=== PATIENT | male | born 1965 | race Caucasian/White ===

== ENCOUNTER 2020-11-11 10:57 | Emergency (ER) | payer BC, OTHER ==
[~2020-11-11 10:57] MED LIST: PREDNISONE 50 M50 MG PO
[2020-11-11 13:16] LABS: HEMOGLOBIN 17.3 gm/dl (14.0-17.5); RED BLOOD COUNT 5.6 M/UL (4.20-5.50); WHITE BLOOD COUNT 10.9 K/UL (4.5-11.0)
[2020-11-11 13:35] LABS: BUN/CREATININE RATIO 17 (0-10)
[2020-11-11] MEDS ORDERED: MOTION SICKNESS25 M2 PO (13:50)
== END 2020-11-11 14:40 | disposition home or self-care (01) ==
LOC: ER1 10:57
PROVIDERS: Family Medicine
DX: H81.10 Benign paroxysmal vertigo, unspecified ear (principal); J45.909 Unspecified asthma, uncomplicated; I10 Essential (primary) hypertension; Z88.0 Allergy status to penicillin
CPT/HCPCS: 70450; 80053; 85025; 99284

== ENCOUNTER 2021-06-15 10:56 | Emergency (ER) | payer BC ==
[~2021-06-15 10:56] MED LIST changes: +MOTION SICKNESS25 M2 PO
[2021-06-15 12:03] LABS: HEMOGLOBIN 16.3 gm/dl (14.0-17.5); RED BLOOD COUNT 5.23 M/UL (4.20-5.50); WHITE BLOOD COUNT 9.7 K/UL (4.5-11.0)
[2021-06-15 12:21] LABS: BUN/CREATININE RATIO 15 (0-10)
== END 2021-06-15 15:30 | disposition home or self-care (01) ==
LOC: ER1 10:56
PROVIDERS: Physician Assistant
DX: L05.91 Pilonidal cyst without abscess (principal); Z88.0 Allergy status to penicillin
CPT/HCPCS: 10080; 80053; 81001; 85025; 96374; 96375; 99282; J1885; J2270; J2405; Q9967

== ENCOUNTER → 2022-05-12 | Outpatient (CLI) | payer BC | LOC: HEART 5 10:55 | DX: R07.2 Precordial pain (principal) ==